=== PATIENT | male | born 1960 | race Caucasian/White ===

== ENCOUNTER 2019-08-04 16:16 | Emergency (ER) | payer OTHER ==
[~2019-08-04] VITALS: Ht 190.5 cm; Wt 90.9 kg
[2019-08-04] MEDS ORDERED: NITROGLYCERIN SUBLINGUAL 0.4 MG BOTTLE OF 25. SL PRN (16:45)
[2019-08-04] MEDS ORDERED: MORPHINE SULFATE 4 MG/ML VIAL. IV/SQ PRN (16:45)
[2019-08-04] MEDS ORDERED: ASPIRIN 325 MG TABLET PO ONE (16:45)
[2019-08-04 16:46] LABS: BILIRUBIN,URINE NEGATIVE (NEG); CLARITY,URINE CLEAR; COLOR,URINE YELLOW; NITRITE,URINE NEGATIVE (NEG); PROTEIN,URINE NEGATIVE (NEG-TRACE); UROBILINOGEN,URINE 0.2 mg/dL (0.2 mg/dL)
[2019-08-04 16:52] LABS: BARBITURATES NEG (NEG); BENZODIAZEPINES NEG (NEG); CANNABINOIDS NEG (NEG); COCAINE NEG (NEG); METHADONE NEG (NEG); OPIATES NEG (NEG); PHENCYCLIDINE NEG (NEG)
[2019-08-04 16:53] LABS: AMPHETAMINE/METHAMPHETAMINE NEG (NEG)
[2019-08-04 16:54] LABS: BACTERIA,URINE 0 /HPF (0-FEW); RBC,URINE 0 /HPF (0-2); SQUAMOUS EPITHELIAL CELL,UR OCC /LPF; WBC,URINE 0 /HPF (0-4)
[2019-08-04 16:58] LABS: BASO % 1 % (0-3); EOS # 0.2 x10^3/uL (0.0-0.7); EOS % 3 % (0-3); HEMATOCRIT 43.5 % (39.0-53.0); HEMOGLOBIN 15.2 g/dL (13.0-17.5); LYMPH # 1.1 x10^3/uL (1.0-4.8); LYMPH % 16 % (24-48); MEAN CORPUSCULAR HEMOGLOBIN 29 pg (25-35); MEAN CORPUSCULAR HGB CONC 35 g/dL (31-37); MEAN CORPUSCULAR VOLUME 83 fL (79-100); MONO # 0.6 x10^3/uL (0.0-1.1); MONO % 8 % (0-9); NEUT # 5.1 x10^3/uL (1.8-7.7); NEUT % 72 % (31-73); PLATELET COUNT 215 x10^3/uL (140-400); RED BLOOD COUNT 5.24 x10^6/uL (4.30-5.70); RED CELL DISTRIBUTION WIDTH 14.2 % (11.5-14.5); WHITE BLOOD COUNT 7.1 x10^3/uL (4.0-11.0)
--- NOTE | 2019-08-04 16:59 | PHYS DOC ---
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 Patient reports previous history of right shoulder injury when he was young. He states pain is sometimes exacerbated with movement but seems to be constant even at rest. Denies anything specifically relieving the pain. Describes the pain as sharp. He states he was given an aspirin which slightly relieved some of the pain. Review of Systems Review of Systems Constitutional: Denies fever or chills [] Eyes: Denies change in visual acuity, redness, or eye pain [] HENT: Denies nasal congestion or sore throat [] Respiratory: Denies cough or shortness of breath [] Cardiovascular: No additional information not addressed in HPI [] GI: Denies abdominal pain, nausea, vomiting, bloody stools or diarrhea [] : Denies dysuria or hematuria [] Musculoskeletal: Reports right shoulder pain Integument: Denies rash or skin lesions [] Neurologic: Denies headache, focal weakness or sensory changes [] All other systems were reviewed and found to be within normal limits, except as documented in this note. Current Medications Current Medications Current Medications Medications (Trade) Dose Ordered Sig/Flores Start Time Stop Time Status Last Admin Dose Admin Aspirin (Nuno Aspirin) 325 mg 1X ONCE 08/04/19 16:45 08/04/19 16:46 DC Morphine Sulfate (Morphine Sulfate) 4 mg PRN Q15MIN PRN 08/04/19 16:45 08/05/19 16:44 Nitroglycerin (Nitrostat) 0.4 mg PRN Q5MIN PRN 08/04/19 16:45 08/05/19 16:44 Allergies Allergies Allergies Coded Allergies Type Severity Reaction Last Updated Verified No Known Drug Allergies 08/04/19 No Physical Exam Physical Exam Constitutional: Well developed, well nourished, no acute distress, non-toxic appearance. [] HENT: Normocephalic, atraumatic, bilateral external ears normal, oropharynx moist, no oral exudates, nose normal. [] Eyes: PERRLA, EOMI, conjunctiva normal, no discharge. [] Neck: Normal range of motion, no tenderness, supple, no stridor. [] Cardiovascular:Heart rate regular rhythm, no murmur [] Lungs & Thorax: Bilateral breath sounds clear to auscultation [] Abdomen: Bowel sounds normal, soft, no tenderness, no masses, no pulsatile masses. [] Skin: Warm, dry, no erythema, no rash. [] Back: No tenderness, no CVA tenderness. [] Extremities: No tenderness, no cyanosis, no clubbing, ROM intact, no edema. [] Neurologic: Alert and oriented X 3, normal motor function, normal sensory function, no focal deficits noted. [] Psychologic: Affect normal, judgement normal, mood normal. [] Current Patient Data Vital Signs Vital Signs Date Time Temp Pulse Resp B/P (MAP) Pulse Ox O2 Delivery O2 Flow Rate FiO2 08/04/19 16:16 98.2 97 17 160/83 (108) 99 Room Air 98.2 Lab Values Laboratory Tests Test 08/04/19 16:40 08/04/19 16:45 Urine Collection Type Unknown Urine Color Yellow Urine Clarity Clear Urine pH 5.0 Urine Specific [place] 1.020 Urine Protein Negative mg/dL (NEG-TRACE) Urine Glucose (UA) Negative mg/dL (NEG) Urine Ketones (Stick) Trace mg/dL (NEG) Urine Blood Negative (NEG) Urine Nitrite Negative (NEG) Urine Bilirubin Negative (NEG) Urine Urobilinogen Dipstick 0.2 mg/dL (0.2 mg/dL) Urine Leukocyte Esterase Negative (NEG) Urine RBC 0 /HPF (0-2) Urine WBC 0 /HPF (0-4) Urine Squamous Epithelial Cells Occ /LPF Urine Bacteria 0 /HPF (0-FEW) Urine Mucus Marked /LPF Urine Opiates Screen Neg (NEG) Urine Methadone Screen Neg (NEG) Urine Barbiturates Neg (NEG) Urine Phencyclidine Screen Neg (NEG) Urine Amphetamine/Methamphetamine Neg (NEG) Urine Benzodiazepines Screen Neg (NEG) Urine Cocaine Screen Neg (NEG) Urine Cannabinoids Screen Neg (NEG) Urine Ethyl Alcohol Neg (NEG) White Blood Count 7.1 x10^3/uL (4.0-11.0) Red Blood Count 5.24 x10^6/uL (4.30-5.70) Hemoglobin 15.2 g/dL (13.0-17.5) Hematocrit 43.5 % (39.0-53.0) Mean Corpuscular Volume 83 fL (79-100) Mean Corpuscular Hemoglobin 29 pg (25-35) Mean Corpuscular Hemoglobin Concent 35 g/dL (31-37) Red Cell Distribution Width 14.2 % (11.5-14.5) Platelet Count 215 x10^3/uL (140-400) Neutrophils (%) (Auto) 72 % (31-73) Lymphocytes (%) (Auto) 16 % (24-48) L Monocytes (%) (Auto) 8 % (0-9) Eosinophils (%) (Auto) 3 % (0-3) Basophils (%) (Auto) 1 % (0-3) Neutrophils # (Auto) 5.1 x10^3/uL (1.8-7.7) Lymphocytes # (Auto) 1.1 x10^3/uL (1.0-4.8) Monocytes # (Auto) 0.6 x10^3/uL (0.0-1.1) Eosinophils # (Auto) 0.2 x10^3/uL (0.0-0.7) Basophils # (Auto) 0.0 x10^3/uL (0.0-0.2) Sodium Level 143 mmol/L (136-145) Potassium Level 3.6 mmol/L (3.5-5.1) Chloride Level 106 mmol/L (98-107) Carbon Dioxide Level 26 mmol/L (21-32) Anion Gap 11 (6-14) Blood Urea Nitrogen 21 mg/dL (8-26) Creatinine 0.9 mg/dL (0.7-1.3) Estimated GFR (Cockcroft-Gault) 87.0 BUN/Creatinine Ratio 23 (6-20) H Glucose Level 93 mg/dL (70-99) Calcium Level 9.3 mg/dL (8.5-10.1) Magnesium Level 2.0 mg/dL (1.8-2.4) Total Bilirubin 0.5 mg/dL (0.2-1.0) Aspartate Amino Transferase (AST) 18 U/L (15-37) Alanine Aminotransferase (ALT) 35 U/L (16-63) Alkaline Phosphatase 56 U/L (46-116) Creatine Kinase 69 U/L (39-308) Creatine Kinase MB (Mass) 1.4 ng/mL (0.0-3.6) Creatine Kinase MB Relative Index 2.0 % (0-4) Troponin I Quantitative < 0.017 ng/mL (0.000-0.055) DH-Nod-R-Type Natriuretic Peptide 133 pg/mL (0-124) H Total Protein 6.5 g/dL (6.4-8.2) Albumin 4.2 g/dL (3.4-5.0) Albumin/Globulin Ratio 1.8 (1.0-1.7) H Thyroid Stimulating Hormone (TSH) 1.425 uIU/mL (0.358-3.74) Laboratory Tests 08/04/19 16:45 Laboratory Tests 08/04/19 16:45 EKG EKG [address] Reed sinus rhythm HR 95 no STEMI[] Radiology/Procedures Radiology/Procedures []PROCEDURE: PORTABLE CHEST 1V PORTABLE CHEST 1V, SHOULDER 2+V RIGHT Clinical History: Right arm pain One view chest: Technique: AP view of the chest was obtained at 08/04/2019 4:55 PM. Comparison: None. Findings: The cardiomediastinal silhouette is normal. The pulmonary vasculature is normal. The lungs and pleural margins are clear. The lung bases have been excluded. Impression: No evidence of an acute cardiopulmonary process. IMPRESSION: Three views right shoulder History: pain Internally and externally rotated AP of shoulder obtained, as well as "Y" view. The glenohumeral relationship is normal. The visualized osseous structures appear intact. There is mild marginal degenerative spurring of the right AC joint. This under sloping acromion. There is marginal spurring inferiorly of the glenohumeral joint. Impression: 1. Moderate degenerative changes. Crystal deposition disease i.e. [place] shoulder is possible. 2. Undersurface sloping of the acromion could cause an element of impingement when the patient abducts. 3. No acute findings. End impression Electronically signed by: Diana Cummings III, MD (08/04/2019 5:18 PM) [id number] DICTATED and SIGNED BY: DIANA CUMMINGS III, MD DATE: 08/04/19 1718 Course & Med Decision Making Course & Med Decision Making Pertinent Labs and Imaging studies reviewed. (See chart for details) This is a 59-year-old male patient presented to the ED today with right shoulder pain that radiated to the neck and arm while he was at work. Cardiac work-up is negative, x-ray noted for possible [place] shoulder. Also noted for possible impingement syndrome to the shoulder. Patient provided orthopedic doctors, follow-up in 1 to 2 weeks. Dragon Disclaimer Dragon Disclaimer This electronic medical record was generated, in whole or in part, using a voice recognition dictation system. Departure Departure Impression: Primary Impression: Right shoulder pain Disposition: HOME, SELF-CARE Condition: STABLE Referrals: KRISTEN BEAL II, MD Follow-up in 1 week Patient Instructions: Shoulder Pain, [id number] Additional Instructions: Please follow-up with the provided orthopedic doctor in 1 week. Try to ice and elevate the affected extremity. Take the prescribed medications as ordered. Scripts Diclofenac Sodium (DICLOFENAC SODIUM) 50 Mg Tablet.dr 1 TAB PO BID, #20 TAB 0 Refills Prov: SARKIS GARCÍA APRN 08/04/19 Cyclobenzaprine Hcl (CYCLOBENZAPRINE HCL) 10 Mg Tablet 1 TAB PO TID, #30 TAB Prov: SARKIS GARCÍA APRN 08/04/19 Methylprednisolone (MEDROL) 4 Mg Tab.ds.pk 1 PKG PO UD, #1 PKG Prov: SARKIS GARCÍA APRN 08/04/19 Problem Qualifiers Primary Impression: Right shoulder pain Chronicity: chronic Qualified Codes: M25.511 - Pain in right shoulder; G89.29 - Other chronic pain SARKIS GARCÍA APRN Aug 04, 2019 16:59
[2019-08-04 17:09] LABS: CALCIUM 9.3 mg/dL (8.5-10.1); CREATININE 0.9 mg/dL (0.7-1.3); POTASSIUM 3.6 mmol/L (3.5-5.1)
[2019-08-04 17:17] LABS: ALBUMIN 4.2 g/dL (3.4-5.0); ALBUMIN/GLOBULIN RATIO 1.8 (1.0-1.7); TOTAL BILIRUBIN 0.5 mg/dL (0.2-1.0); TOTAL PROTEIN 6.5 g/dL (6.4-8.2)
--- NOTE | 2019-08-04 17:21 | RAD ---
PORTABLE CHEST 1V, SHOULDER 2+V RIGHT Clinical History: Right arm pain One view chest: Technique: AP view of the chest was obtained at 08/04/2019 4:55 PM. Comparison: None. Findings: The cardiomediastinal silhouette is normal. The pulmonary vasculature is normal. The lungs and pleural margins are clear. The lung bases have been excluded. Impression: No evidence of an acute cardiopulmonary process. IMPRESSION: Three views right shoulder History: pain Internally and externally rotated AP of shoulder obtained, as well as "Y" view. The glenohumeral relationship is normal. The visualized osseous structures appear intact. There is mild marginal degenerative spurring of the right AC joint. This under sloping acromion. There is marginal spurring inferiorly of the glenohumeral joint. Impression: 1. Moderate degenerative changes. Crystal deposition disease i.e. [place] shoulder is possible. 2. Undersurface sloping of the acromion could cause an element of impingement when the patient abducts. 3. No acute findings. End impression Electronically signed by: Rao Kent III, MD (08/04/2019 5:18 PM) [id number]
[2019-08-04 18:20] VITALS: BP 136/89
[2019-08-04] MEDS ORDERED: DICL50TA4 PO (18:33)
[2019-08-04] MEDS ORDERED: CYCL10TA2 PO (18:33)
[2019-08-04] MEDS ORDERED: METH4TAB2 PO (18:33)
--- NOTE | 2019-08-04 19:22 | EKG ---
[facility] [address] [place] [address] Test Date: 2019-08-04 Test Time: 16:34:58 Pat Name: JAVIER ELY Department: Room: Gender: M [employer]: : [id number] Requested By: SARKIS GARCÍA Order Number: [id number] Reading MD: Measurements Intervals [place] Rate: 95 P: 16 NH: 182 QRS: -8 QRSD: 92 T: 18 QT: 352 QTc: 446 Interpretive Statements SINUS RHYTHM LEFTWARD AXIS OTHERWISE NORMAL ECG RI6.01 No previous ECG available for comparison
== END 2019-08-04 18:43 | disposition home or self-care (01) ==
LOC: ER 16:16
DX: M25.511 Pain in right shoulder (principal); G89.29 Other chronic pain; M54.2 Cervicalgia; M79.601 Pain in right arm; I10 Essential (primary) hypertension; Z87.828 Personal history of other (healed) physical injury and trauma
CPT/HCPCS: 36415; 71045; 73030; 80053; 80307; 81001; 82553; 83735; 83880; 84443; 84484; 85025; 93005; 99285-25